=== PATIENT | male | born 1950 | race African-American/Black ===

== ENCOUNTER 2023-07-12 10:01 | Observation (INO) | payer OTHER ==
[2023-07-12] MEDS ORDERED: PANTOPRAZOLE SODIUM 40 MG VIAL IVPUSH ONE (10:44)
[2023-07-12 11:27] LABS: EOS % 6.9 % (0-4.5); HEMATOCRIT 31.9 % (35.4-49); HEMOGLOBIN 10.3 GM/dL (11.7-16.9); LYMPH % 14.5 % (8-40); MCHC 32.3 g/dl (32.0-35.9); MEAN CELL VOLUME 77.5 fl (80-96); MEAN PLT VOLUME 8.2 fl (7.5-11.1); MONO % 17.8 % (3.8-10.2); NEUT % 59.8 % (42.8-82.8); PLATELET COUNT 301 10^3/uL (134-434); RBC 4.11 M/mm3 (4.00-5.60); RDW 15.3 % (11.9-15.9); WHITE BLOOD COUNT 6.4 K/mm3 (4.0-10.0)
[2023-07-12 11:39] LABS: INR 1.26 (0.83-1.09); PROTHROMBIN TIME (PATIENT) 14.6 SEC (9.7-13.0)
[2023-07-12 11:42] LABS: ACTIVATED PTT 24.2 SECONDS (25.2-36.5)
[2023-07-12] MEDS ORDERED: PANTOPRAZOLE SODIUM 40 MG/100 ML BAG IVPB ONE (13:30)
[2023-07-12] MEDS ORDERED: PANTOPRAZOLE SODIUM 40 MG VIAL ONE (13:30)
[2023-07-12 14:02] LABS: POTASSIUM 4.6 mmol/L (3.5-5.1)
[2023-07-12 14:04] LABS: ALBUMIN 2.4 g/dl (3.4-5.0); CALCIUM 9.6 mg/dL (8.5-10.1)
[2023-07-12 14:05] LABS: BLOOD UREA NITROGEN 20.6 mg/dL (7-18)
[2023-07-12 14:08] LABS: CREATININE 0.8 mg/dL (0.55-1.3)
[2023-07-12 14:09] LABS: BILIRUBIN,TOTAL 0.3 mg/dL (0.2-1)
[2023-07-12] MEDS ORDERED: MAGNESIUM SULF 50% (8.12 MEQ/2 ML-1 GM VIAL) IVPB ONE (15:24)
[2023-07-12] MEDS ORDERED: MAGNESIUM 1GM/D5W - 1 GM/100 ML IVPB IVPB ONE (17:35)
[2023-07-13 01:24] VITALS: BMI 21.8
[2023-07-13 08:38] LABS: BASO % 0.9 % (0-2.0); HEMATOCRIT 32.1 % (35.4-49); HEMOGLOBIN 10.8 GM/dL (11.7-16.9); LYMPH % 14.1 % (8-40); MCH 27.3 pg (25.7-33.7); MCHC 33.5 g/dl (32.0-35.9); MEAN CELL VOLUME 81.3 fl (80-96); MEAN PLT VOLUME 8.8 fl (7.5-11.1); MONO % 17.6 % (3.8-10.2); NEUT % 59.4 % (42.8-82.8); PLATELET COUNT 261 10^3/uL (134-434); RBC 3.95 M/mm3 (4.00-5.60); RDW 15.1 % (11.9-15.9); WHITE BLOOD COUNT 5.6 K/mm3 (4.0-10.0)
[2023-07-13 08:48] LABS: POTASSIUM 4.5 mmol/L (3.5-5.1)
[2023-07-13 09:11] LABS: BLOOD UREA NITROGEN 17.6 mg/dL (7-18)
[2023-07-13 09:12] LABS: CALCIUM 9.4 mg/dL (8.5-10.1)
[2023-07-13 09:15] LABS: CREATININE 0.9 mg/dL (0.55-1.3)
[2023-07-14 07:43] LABS: HEMOGLOBIN 10.1 GM/dL (11.7-16.9); MCH 29.8 pg (25.7-33.7); MCHC 34.8 g/dl (32.0-35.9); MEAN CELL VOLUME 85.8 fl (80-96); MEAN PLT VOLUME 8.2 fl (7.5-11.1); PLATELET COUNT 234 10^3/uL (134-434); RBC 3.39 M/mm3 (4.00-5.60); WHITE BLOOD COUNT 4.3 K/mm3 (4.0-10.0)
[2023-07-14 09:07] LABS: ANISOCYTOSIS 1+; MACROCYTOSIS 0
[2023-07-14 09:15] LABS: ALBUMIN 2.4 g/dl (3.4-5.0); BILIRUBIN,TOTAL 0.6 mg/dL (0.2-1); BLOOD UREA NITROGEN 15.6 mg/dL (7-18); TOT PROT 6.8 g/dl (6.4-8.2)
[2023-07-14 09:17] LABS: CALCIUM 9.1 mg/dL (8.5-10.1)
[2023-07-14 09:18] LABS: CREATININE 0.9 mg/dL (0.55-1.3)
[2023-07-14 09:24] LABS: MAGNESIUM 1.8 mg/dL (1.8-2.4)
[2023-07-14] MEDS ORDERED: PANTOPRAZOLE 20 MG TABLET PO SCH (11:15)
[2023-07-14] MEDS: CARVEDILOL 3.125 MG TABLET (FP) GT SCH ×2 (11:39→21:27)
[2023-07-14] MEDS: MAGNESIUM OXIDE 400 MG TABLET (FP) GT SCH ×2 (11:39→21:27)
[2023-07-14] MEDS: MULTIVITAMINS (DAILY MVI) TABLET (FP) PO SCH (11:39)
[2023-07-14] MEDS: AMIODARONE HCL 200 MG TABLET GT SCH (11:39)
[2023-07-14] MEDS: HYDROCORTISONE 5 MG TABLET PO SCH (12:05)
[2023-07-14] MEDS: APIXABAN 5 MG TABLET GT SCH ×2 (12:05→21:27)
[2023-07-14] MEDS: DOXAZOSIN MESYLATE 1 MG TABLET PEG SCH (12:05)
[2023-07-14] MEDS: LIPASE/PROTEASE/AMYLASE 36,000 UNIT CAPSULE PO SCH ×2 (12:05→16:38)
[2023-07-14] MEDS: ENTECAVIR 0.5 MG TABLET PO SCH (12:06)
[2023-07-14] MEDS ORDERED: oxyCODONE HCL 5 MG TABLET PO ONE (21:42)
[2023-07-15] MEDS: LIPASE/PROTEASE/AMYLASE 36,000 UNIT CAPSULE PO SCH ×3 (08:06→17:31)
[2023-07-15 08:57] LABS: POTASSIUM 3.8 mmol/L (3.5-5.1)
[2023-07-15 09:00] LABS: CALCIUM 9.6 mg/dL (8.5-10.1)
[2023-07-15 09:01] LABS: ALBUMIN 2.6 g/dl (3.4-5.0); BLOOD UREA NITROGEN 17.3 mg/dL (7-18)
[2023-07-15 09:06] LABS: BILIRUBIN,TOTAL 0.8 mg/dL (0.2-1); TOT PROT 7.3 g/dl (6.4-8.2)
[2023-07-15 09:42] LABS: BASO % 0.6 % (0-2.0); EOS % 5.8 % (0-4.5); HEMATOCRIT 34.8 % (35.4-49); HEMOGLOBIN 11.3 GM/dL (11.7-16.9); LYMPH % 14.5 % (8-40); MCH 24.7 pg (25.7-33.7); MCHC 32.3 g/dl (32.0-35.9); MEAN CELL VOLUME 76.5 fl (80-96); MEAN PLT VOLUME 7.9 fl (7.5-11.1); MONO % 15.4 % (3.8-10.2); NEUT % 63.7 % (42.8-82.8); PLATELET COUNT 237 10^3/uL (134-434); RBC 4.55 M/mm3 (4.00-5.60); WHITE BLOOD COUNT 5.2 K/mm3 (4.0-10.0)
[2023-07-15] MEDS: MAGNESIUM OXIDE 400 MG TABLET (FP) GT SCH ×2 (10:44→21:26)
[2023-07-15] MEDS: AMIODARONE HCL 200 MG TABLET GT SCH (10:44)
[2023-07-15] MEDS: ENTECAVIR 0.5 MG TABLET PO SCH (10:44)
[2023-07-15] MEDS: CARVEDILOL 3.125 MG TABLET (FP) GT SCH ×2 (10:44→21:26)
[2023-07-15] MEDS: MULTIVITAMINS (DAILY MVI) TABLET (FP) PO SCH (10:44)
[2023-07-15] MEDS: HYDROCORTISONE 5 MG TABLET PO SCH (10:44)
[2023-07-15] MEDS: APIXABAN 5 MG TABLET GT SCH ×2 (10:44→21:26)
[2023-07-15] MEDS: FAMOTIDINE 20 MG/2.5 ML ORAL LIQUID PO SCH (10:44)
[2023-07-15] MEDS: DOXAZOSIN MESYLATE 1 MG TABLET PEG SCH (10:44)
[2023-07-15] MEDS ORDERED: oxyCODONE HCL 5 MG TABLET PO ONE (21:28)
[2023-07-16] MEDS: LIPASE/PROTEASE/AMYLASE 36,000 UNIT CAPSULE PO SCH ×2 (08:03→13:15)
[2023-07-16] MEDS: CARVEDILOL 3.125 MG TABLET (FP) GT SCH (09:42)
[2023-07-16] MEDS: AMIODARONE HCL 200 MG TABLET GT SCH (09:42)
[2023-07-16] MEDS: MAGNESIUM OXIDE 400 MG TABLET (FP) GT SCH (09:43)
[2023-07-16] MEDS: APIXABAN 5 MG TABLET GT SCH (09:43)
[2023-07-16] MEDS: FAMOTIDINE 20 MG/2.5 ML ORAL LIQUID PO SCH (09:43)
[2023-07-16] MEDS: MULTIVITAMINS (DAILY MVI) TABLET (FP) PO SCH (09:43)
[2023-07-16] MEDS: DOXAZOSIN MESYLATE 1 MG TABLET PEG SCH (09:44)
[2023-07-16] MEDS: HYDROCORTISONE 5 MG TABLET PO SCH (09:44)
[2023-07-16] MEDS: ENTECAVIR 0.5 MG TABLET PO SCH (09:44)
[2023-07-16 10:31] VITALS: PULSE 85; RESP 18; TEMP 100
[2023-07-16 14:36] VITALS: BP 118/75
[2023-07-16] MEDS ORDERED: CARVEDILOL 6.25 MG TABLET (FP) GT SCH (22:00)
== END 2023-07-16 16:51 ==
LOC: JER 10:01 → JERBED 18:19 → J4W 07-13 00:59
PROVIDERS: ADMIT Internal Medicine; ATTEND Internal Medicine
PROC: 3E033GC Introduction of Other Therapeutic Substance into Peripheral Vein, Percutaneous Approach (ICD-10-PCS; principal; 2023-07-12)
DX: I48.91 Unspecified atrial fibrillation (principal); B18.1 Chronic viral hepatitis B without delta-agent; E78.5 Hyperlipidemia, unspecified; K51.90 Ulcerative colitis, unspecified, without complications; E87.5 Hyperkalemia; R11.10 Vomiting, unspecified; Z93.3 Colostomy status; R04.0 Epistaxis; I10 Essential (primary) hypertension; R04.2 Hemoptysis; Z79.01 Long term (current) use of anticoagulants
CPT/HCPCS: 0241U-QW; 36415; 71045-TC-FY; 80048; 80053; 80061; 82962; 83735; 84443; 84484; 85025; 85610; 85730; 86850; 86900; 86901; 93005; 93010; 93306-TC; 96374; 99285-25; G0378

== ENCOUNTER 2023-08-25 12:52 | Emergency (ER) | payer OTHER ==
[2023-08-25 13:30] LABS: HEMOGLOBIN 12.5 G/dL (11.7-16.9); MCH 25.6 pg (25.7-33.7); MCHC 31.9 g/dl (32.0-35.9); MEAN CELL VOLUME 80.2 fl (80-96); MEAN PLT VOLUME 10.2 fl (7.5-11.1); PLATELET COUNT 270.4 10^3/uL (134-434); RBC 4.86 10^6/uL (4.00-5.60); RDW 16.7 % (11.9-15.9); WHITE BLOOD COUNT 3.1 10^3/uL (4.0-10.8)
[2023-08-25 13:31] VITALS: RESP 16; TEMP 98.6; BMI 20.3
[2023-08-25 13:58] LABS: PLATELET ESTIMATE ADEQUATE
[2023-08-25 19:22] VITALS: BP 103/74; PULSE 86
== END 2023-08-25 19:23 ==
LOC: FER 12:52
DX: D72.829 Elevated white blood cell count, unspecified (principal)
CPT/HCPCS: 36415; 85027; 99283-25